=== PATIENT | female | born 1990 | race Caucasian/White ===

== ENCOUNTER 2020-12-31 20:37 | Emergency (ER) | payer MEDICAID ==
[~2020-12-31] VITALS: Ht 167.6 cm; Wt 97.1 kg
[~2020-12-31 20:37] MED LIST: PRENATAL VITS.
[2020-12-31 20:45] VITALS: BP 135/80
--- NOTE | 2020-12-31 20:45 | NUR ---
TO BED AMBULATORY
--- NOTE | 2020-12-31 21:00 | NUR ---
ARRIVED TO BEDSIDE TO FIND PATIENT SITTING IN UPRIGHT POSITION IN [facility], ALERT AND ORINETED, TRACKING WITH EYES. PATIENT RESTING IN A POSITION OF COMFORT, PATIENT C/O DIZZINESS X1 DAY, HEADACHE FOREHEAD, 3/10 PAIN, NON RADIATING. PATIENT CONNECTED TO CONTINUOUS CARDIAC MONITORING, VS STABLE HR 78, OXYGEN SATURATION 99%. NO OBVIOUS SIGNS OF DISTRESS NOTED WHILE AT BEDSIDE. WILL CONTINUE TO CLOSELY MONITOR AND FREQUENTLY ROUND.
--- NOTE | 2020-12-31 21:02 | NUR ---
PATIENT DENIES ANY PAST MEDICAL HISTORY, STATES NKDA, AND TAKES NO MEDICATIONS AT HOME, PER THE PATIENT.
--- NOTE | 2020-12-31 21:08 | NUR ---
Dr. Summers examining patient.
[2020-12-31] MEDS ORDERED: MECLIZINE 25 MG TAB PO ONE (21:10)
--- NOTE | 2020-12-31 22:10 | NUR ---
PATIENT STATES NO LONGER FEELING DIZZY AT THIS TIME, STATES FEELING FINE AND RESTING IN A POSITION OF COMFORT. WILL COTINUE TO CLOSELY MONITOR.
[2020-12-31 22:32] VITALS: BP 127/82
[2020-12-31] MEDS ORDERED: ACETAMINOPHEN 325 MG TAB PO ONE (23:05)
[2020-12-31] MEDS ORDERED: MECL-303 PO (23:06)
--- NOTE | 2020-12-31 23:18 | NUR ---
d/c with [facility]SS. d/c education given. opportunity to ask questions given and answered. rx of meclizine given.
== END 2020-12-31 23:18 | disposition home or self-care (01) ==
LOC: MED 20:37
DX: R42 Dizziness and giddiness (principal); R11.2 Nausea with vomiting, unspecified; R51.9 Headache, unspecified; Z79.899 Other long term (current) drug therapy
CPT/HCPCS: 81002; 81025; 99283; J8597